=== PATIENT | female | born 1955 | race Caucasian/White ===

== ENCOUNTER → 2017-04-15 | Day surgery (SDC) | payer BC ==
[~2017-04-15] MED LIST: ACETAMINOPHEN 1000 MG/100 ML VIAL IV ONE; BUPIVACAINE/EPINEPHRINE 0.5% PF 10 ML VIAL ONE; HALOPERIDOL LACTATE 5 MG/ML AMP IV ONE; ISOSULFAN BLUE 50 MG/5 ML VIAL SQ ONE; KETOROLAC TROMETHAMINE 30 MG/ML (IVP) VIAL IV PUSH ONE; LACTATED RINGER'S 1000 ML INJ 1,000 ML ONE; LIDOCAINE 1%/EPINEPHrine 1:100,000 SOLN 20 ML VIAL ONE; ONDANSETRON HCL 4 MG/2 ML VIAL IV PUSH ONE; PROPOFOL 200 MG/20 ML AMP IV ONE; ceFAZolin INJ 1,000 MG VIAL ONE
--- NOTE | 2017-04-15 17:13 | RADONCOP ---
OPERATIVE REPORT DATE OF SURGERY: 04/15/2017 REFERRING PHYSICIAN: Sherif Landaverde PREOPERATIVE DIAGNOSIS: C50.412 - Malignant neoplasm of upper-outer quadrant of left female breast, Diagnosed 03/30/2017 (Active) POSTOPERATIVE DIAGNOSIS: C50.412 - Malignant neoplasm of upper-outer quadrant of left female breast, Diagnosed 03/30/2017 (Active) PROCEDURE: Intraoperative Radiation Therapy to the . SURGEON: Sherif Landaverde ANESTHESIA: General ESTIMATED BLOOD LOSS: Minimal see Dr Li's operative note. INDICATIONS: Patient is a 61 year old female presenting with St. 1A left breast cancer.. She has elected to receive targeted intraoperative radiation therapy to the . DESCRIPTION OF PROCEDURE: Patient was taken to the operating room and placed on the table in the supine position. Following induction of general anesthesia, the and arm were prepped and draped sterilely. . The wound was prepared for intraoperative radiation therapy. Based on the diameter of the cavity, a 4.5cm radiation applicator was selected for the delivery of intraoperative radiation therapy. The applicator was then sterilely mounted onto the Intrabeam Stand. Retracting sutures were placed within the skin to be used to retract the skin edges away from the radiation source. The 4.5cm Radiation applicator was then sterilely inserted into the wound. The superficial purse-string suture was tied down. Ultrasound was performed of the breast to document conformity of the surgical margins and the distance from the applicator to the skin surface (1.2cm). The retracting sutures were then secured and a moistened lap pad was placed on the skin surface, followed by an external radiation barrier. Intraoperative radiotherapy was then initiated by the Radiation Oncologist. Total treatment time was 35 minutes. Upon completion of the intraoperative radiotherapy treatment, the radiation applicator, purse-string sutures and retracting sutures were removed from the wound. Dr. Landaverde then completed the surgical procedure. Behzad Dean MD 04/15/2017 5:12:33 PM This report was verified and signed electronically [facility] [address] [place] [address] RADIATION ONCOLOGY OPERATIVE REPORT Date: 04/15/2017 Patient Name: Emmanuelle Velazquez
--- NOTE | 2017-04-15 20:10 | TN ---
cc: KASI DEAN M.D., JOSEPH D. M.D. DATE OF SURGERY 04/15/2017 PREOPERATIVE DIAGNOSIS Left-sided breast cancer at 3 o'clock position. POSTOPERATIVE DIAGNOSIS Left-sided breast cancer at 3 o'clock position. PROCEDURE PERFORMED 1. Injection of Lymphazurin blue dye with sentinel node identification x 4 with lymphatic mapping. 2. Needle-localized excisional quadrantectomy at the 3 o'clock position in the left breast. 3. Application of intraoperative radiation therapy device using a 4.5 cm radiation catheter device. 4. Ultrasound left breast to confirm tissue margins for radiation. ANESTHESIA General SURGEON Dr. Landaverde. RADIATION THERAPIST Dr. Zbigniew Dean. INDICATIONS This is a pleasant lady who was found to have a breast cancer of the left breast at the 3 o'clock position. She is a candidate for a intraoperative radiation therapy. Plans were made for application of the intraoperative radiation therapy device and also sentinel node. PROCEDURE DETAILS The patient prepped and taken to the operating room and placed in supine position. After anesthesia a time-out was done, we inject 6 mL of Lymphazurin blue dye at the needle track chad that is somewhat lateral coursing from posterior to anterior direction and medial to lateral at the 3 o'clock position on the left breast. We injected Lymphazurin blue dye and then we dissect in the axillary region where a hot spot is obtained. We obtained four lymph nodes. The first one being fairly superficial with ex vivo count of 552, it is not blue. A second one with ex vivo count of 1285 and it is not blue. A third one with an ex vivo count of 212 that is not blue and a 4th one with an ex vivo count of 372 that is blue. No other lymphadenopathy is noted and no other hot spots, no other blue nodes. After this was done hemostasis was assured. We then closed the skin with a 4-0 Vicryl. We then direct our attention to the left breast. The guidewire was placed at the 3 o'clock position coursing in the posterior to anterior direction and lateral to medial. We made a horizontal incision approximately 2 cm from the entrance of the guidewire at 3 o'clock position and dissect down through the subcutaneous tissue identifying the guidewire, clipping the guidewire at the skin level, unable to treat it. We go approximately 2 cm above and 2 cm below the guidewire and down almost to the chest wall to completely excise this tumor that is localized. A short stitch placed superiorly and long stitch placed laterally and this is sent down to radiology where the radiologist feel that there are adequate margins with the clip, the mass and the guidewire. Because of the graininess and roughness of the breast tissue at the suture edge, I did take another margin labeled it as superior margin and it is labeled and marked with a short stitch superiorly and long stitch laterally. Then irrigate and hemostasis is assured. This time in the procedure we placed the radiation therapy catheter device. This was done. First we tried the 3.5 and it was too small, we went up to the 4.5 and this fit snugly. I placed a pursestring suture at the superior edge of the breast tissue. I placed the catheter after draping it sterilely and secured into place in a slightly lateral to medial direction into the quadrantectomy site. Dr. Dean and the physicist applied the radiation therapy after I applied the device and radiation therapy last approximately 34 minutes. See the radiation therapy note. It is noted after we did place the device we did an ultrasound to confirm the skin was not too close to the radiation therapy device at all four quadrants and it was greater than a centimeter. Ultrasound to confirm placement of the radiation therapy device with adequate tissue margins. After the radiation was completed the radiation therapy catheter device was removed. deep layer was closed with a 3-0 Vicryl and skin is closed with 4-0 Vicryl. Steri-Strips applied. Sterile bandage applied. Sherif Landaverde MD JSARA/KK /4:48 PM /7:50 PM CHRISTIANO
--- NOTE | 2017-04-16 14:53 | RADONCENDT ---
END OF TREATMENT SUMMARY PRIMARY REFERRING PHYSICIAN: Sherif Landaverde CC: Sherif Landaverde DIAGNOSIS: Primary C50.412 - Malignant neoplasm of upper-outer quadrant of left female breast, Diagnosed 03/30/2017 (Active) Left breast biopsy PRESCRIPTION AND TREATMENT: 2000 cGy to surface of applicator- TREATED PLAN FRACTIONS AND DATES: Course: One fraction delivered on 04/16/2017 TOLERANCE: Patient completed treatment without complications. FOLLOW UP PLAN: Patient to be seen in 2-3 weeks Behzad Dean MD 04/16/2017 2:53:15 PM This report was verified and signed electronically [facility] [address] [place] [address] RADIATION ONCOLOGY END OF TREATMENT SUMMARY Date: 04/15/2017 Patient Name: Emmanuelle Velazquez Date of : 1955 Age: 61 Sex: Female
== END | disposition home or self-care (01) ==
LOC: ESDC 08:09
PROVIDERS: ATTEND Surgery
DX: D05.12 Intraductal carcinoma in situ of left breast (principal)
CPT/HCPCS: 00400; 01610; 19125; 19298; 38525; 38792; 77290; 77300; 77334; 77370; 77424; 88307; J0131; J0690; J1630; J1885; J2405; J3010; J7120; Q9968; 77469

== ENCOUNTER 2017-10-31 01:34 | Emergency (ER) | payer BC ==
[~2017-10-31] VITALS: Ht 162.6 cm; Wt 70.0 kg
[2017-10-31 01:37] VITALS: BP 177/74; PULSE 63; RESP 18; TEMP 97.9; O2SAT 98
[2017-10-31] MEDS ORDERED: SODIUM CHLORIDE 0.9% FLUSH 10 ML FLUSH IV FLUSH PRN (01:45)
--- NOTE | 2017-10-31 01:52 | PD ---
HPI Chief Complaint: Abdominal Pain Time Seen by Provider: 01:49 Travel History International Travel<30 days: No Contact w/Intl Traveler<30days: No Traveled to known affect area: No History of Present Illness HPI 62-year-old female patient presents to the ER today with 2 weeks' history of nausea, diarrhea, and intermittent vomiting, got worse in the last few days and she is now having a lot of lower abdominal discomfort today which she currently rates it a 10 out of 10. She states that she is having vomiting today which she has not had previously. She denies any urinary symptoms or other issues. Modifying Factors: None Associated Signs & Symptoms: Nausea, vomiting, diarrhea, worsening lower abdominal discomfort Risk Factors: None PFSH Social History Tobacco Use: No Allergies-Medications (Allergen,Severity, Reaction): Coded Allergies: iodine (Verified Allergy, Intermediate, VOMITING, 10/31/17) Review of Systems Except as stated in HPI: all other systems reviewed are Neg Physical Exam Narrative GENERAL: Well-developed elderly white female patient currently in moderate distress. Awake and oriented 3. SKIN: Focused skin assessment warm/dry. HEAD: Atraumatic. Normocephalic. EYES: Pupils equal and round. No scleral icterus. No injection or drainage. ENT: No nasal bleeding or discharge. Mucous membranes pink and moist. NECK: Trachea midline. No JVD. Supple. CARDIOVASCULAR: Regular rate and rhythm. No murmur appreciated. RESPIRATORY: No accessory muscle use. Clear to auscultation. Breath sounds equal bilaterally. GASTROINTESTINAL: Abdomen soft, lower abdominal tenderness without guarding or rebound, nondistended. Hepatic and splenic margins not palpable. MUSCULOSKELETAL: No obvious deformities. No clubbing. No cyanosis. No edema. NEUROLOGICAL: Awake and alert. No obvious cranial nerve deficits. Motor grossly within normal limits. Normal speech. PSYCHIATRIC: Appropriate mood and affect; insight and judgment normal. Data Data Last Documented VS Vital Signs Date Time Temp Pulse Resp B/P (MAP) Pulse Ox O2 Delivery O2 Flow Rate FiO2 10/31/17 02:03 98 10/31/17 01:37 97.9 63 18 177/74 (108) Orders Orders Complete Blood Count With Diff (10/31/17 01:45) Comprehensive Metabolic Panel (10/31/17 01:45) Lipase (10/31/17 01:45) Urinalysis - C+S If Indicated (10/31/17 01:45) Iv Access Insert/Monitor (10/31/17 01:45) Ecg Monitoring (10/31/17 01:45) Oximetry (10/31/17 01:45) Sodium Chloride 0.9% Flush (Ns Flush) (10/31/17 01:45) Sodium Chlor 0.9% 1000 Ml Inj (Ns 1000 M (10/31/17 02:00) Morphine Inj (Morphine Inj) (10/31/17 02:00) Ondansetron Inj (Zofran Inj) (10/31/17 02:00) Ct Abd/Pel W/O Iv Contrast (10/31/17 02:33) Labs Laboratory Tests Test 10/31/17 01:59 10/31/17 02:38 White Blood Count 8.1 TH/MM3 Red Blood Count 4.39 MIL/MM3 Hemoglobin 13.5 GM/DL Hematocrit 40.0 % Mean Corpuscular Volume 91.0 FL Mean Corpuscular Hemoglobin 30.6 PG Mean Corpuscular Hemoglobin Concent 33.7 % Red Cell Distribution Width 12.9 % Platelet Count 152 TH/MM3 Mean Platelet Volume 9.2 FL Neutrophils (%) (Auto) 76.1 % Lymphocytes (%) (Auto) 15.4 % Monocytes (%) (Auto) 5.6 % Eosinophils (%) (Auto) 1.5 % Basophils (%) (Auto) 1.4 % Neutrophils # (Auto) 6.1 TH/MM3 Lymphocytes # (Auto) 1.3 TH/MM3 Monocytes # (Auto) 0.5 TH/MM3 Eosinophils # (Auto) 0.1 TH/MM3 Basophils # (Auto) 0.1 TH/MM3 CBC Comment DIFF FINAL Differential Comment Blood Urea Nitrogen 14 MG/DL Creatinine 0.95 MG/DL Random Glucose 160 MG/DL Total Protein 7.1 GM/DL Albumin 3.9 GM/DL Calcium Level 8.8 MG/DL Alkaline Phosphatase 72 U/L Aspartate Amino Transf (AST/SGOT) 19 U/L Alanine Aminotransferase (ALT/SGPT) 28 U/L Total Bilirubin 0.4 MG/DL Sodium Level 142 MEQ/L Potassium Level 3.7 MEQ/L Chloride Level 111 MEQ/L Carbon Dioxide Level 23.2 MEQ/L Anion Gap 8 MEQ/L Estimat Glomerular Filtration Rate 59 ML/MIN Lipase 134 U/L Urine Color YELLOW Urine Turbidity CLEAR Urine pH 5.5 Urine Specific [place] 1.017 Urine Protein NEG mg/dL Urine Glucose (UA) NEG mg/dL Urine Ketones NEG mg/dL Urine Occult Blood TRACE Urine Nitrite NEG Urine Bilirubin NEG Urine Leukocyte Esterase NEG Urine RBC 0-3 /hpf Urine WBC 0-2 /hpf Urine Squamous Epithelial Cells 0-5 /hpf Urine Bacteria NONE /hpf Microscopic Urinalysis Comment CULT NOT INDICATED MDM Medical Decision Making Medical Screen Exam Complete: Yes Emergency Medical Condition: Yes Medical Record Reviewed: Yes Interpretation(s) Laboratory Tests Test 10/31/17 01:59 10/31/17 02:38 Neutrophils (%) (Auto) 76.1 % (16.0-70.0) Random Glucose 160 MG/DL (74-106) Chloride Level 111 MEQ/L (98-107) Estimat Glomerular Filtration Rate 59 ML/MIN (>89) Differential Diagnosis Lower abdominal discomfort, nausea, vomiting, diarrhea: Gastroenteritis versus diverticulitis versus UTI versus other acute intra-abdominal processes versus dehydration versus metabolic issues Narrative Course Lab work shows no significant leukocytosis. Her UA was unremarkable. CAT scan is showing signs of diverticulitis. At this point, my plan would be to treat her for diverticulitis and have her follow-up with primary care physician. Return for any worsening in symptoms as necessary. The plan has been discussed with her and she states understanding. Diagnosis Primary Impression: Abdominal pain Additional Impression: Diverticulitis Med/Other Pt SpecificInfo: Prescription(s) given Scripts Ondansetron Odt (Zofran Odt) 4 Mg Tab 4 MG SL Q6HR Y for Nausea/Vomiting, #7 TAB 0 Refills Prov: Iraj Perez MD 10/31/17 Ciprofloxacin (Cipro) 500 Mg Tab 500 MG PO BID for Infection for 7 Days, #14 TAB 0 Refills Prov: Iraj Perez MD 10/31/17 Metronidazole (Flagyl) 500 Mg Tab 500 MG PO TID for Infection for 7 Days, TAB 0 Refills Prov: Iraj Perez MD 10/31/17 Ibuprofen (Ibuprofen) 600 Mg Tab 600 MG PO Q6H Y for Pain/Inflammation, #20 TAB 0 Refills Prov: Iraj Perez MD 10/31/17 Disposition: 01 DISCHARGE HOME Condition: Stable Rahel Pereze MD Oct 31, 2017 01:52
[2017-10-31] MEDS ORDERED: SODIUM CHLOR 0.9% 1000 ML INJ 1,000 ML IV ONE (02:00)
[2017-10-31] MEDS ORDERED: ONDANSETRON HCL 4 MG/2 ML VIAL IV PUSH ONE (02:00)
[2017-10-31] MEDS ORDERED: MORPHINE SULFATE 2 MG/ML INJ IV PUSH ONE (02:00)
[2017-10-31 02:02] LABS: AUTOMATED NEUTROPHIL # 6.1 TH/MM3 (1.8-7.7); BASOPHIL # 0.1 TH/MM3 (0-0.2); BASOPHIL % 1.4 % (0.0-2.0); EOSINOPHIL # 0.1 TH/MM3 (0-0.4); EOSINOPHIL % 1.5 % (0.0-4.0); HEMOGLOBIN 13.5 GM/DL (11.6-15.3); LYMPH % 15.4 % (9.0-44.0); LYMPHOCYTE # 1.3 TH/MM3 (1.0-4.8); MEAN CORPUSCULAR HEMOGLOBIN 30.6 PG (27.0-34.0); MEAN CORPUSCULAR HGB CONC 33.7 % (32.0-36.0); MEAN PLATELET VOLUME 9.2 FL (7.0-11.0); MONO % 5.6 % (0.0-8.0); MONOCYTE # 0.5 TH/MM3 (0-0.9); NEUT % 76.1 % (16.0-70.0); PLATELET COUNT 152 TH/MM3 (150-450); RED BLOOD COUNT 4.39 MIL/MM3 (4.00-5.30); RED CELL DISTRIBUTION WIDTH 12.9 % (11.6-17.2); WHITE BLOOD COUNT 8.1 TH/MM3 (4.0-11.0)
[2017-10-31 02:03] VITALS: O2SAT 98
[2017-10-31 02:09] LABS: CHLORIDE 111 MEQ/L (98-107); SODIUM (NA) 142 MEQ/L (136-145)
[2017-10-31 02:12] LABS: CALCIUM 8.8 MG/DL (8.5-10.1)
[2017-10-31 02:13] LABS: ALBUMIN 3.9 GM/DL (3.4-5.0); BICARBONATE 23.2 MEQ/L (21.0-32.0); BLOOD UREA NITROGEN 14 MG/DL (7-18); GLUCOSE,RANDOM 160 MG/DL (74-106); LIPASE 134 U/L (73-393)
[2017-10-31 02:16] LABS: ALT (GPT) 28 U/L (10-53); AST (GOT) 19 U/L (15-37); CREATININE 0.95 MG/DL (0.50-1.00); GLOMERULAR FILTRATION RATE 59 ML/MIN (>89)
[2017-10-31 02:17] LABS: TOTAL BILIRUBIN ADULT 0.4 MG/DL (0.2-1.0)
[2017-10-31 02:18] LABS: TOTAL PROTEIN 7.1 GM/DL (6.4-8.2)
[2017-10-31 02:19] LABS: ALKALINE PHOSPHATASE 72 U/L (45-117)
[2017-10-31 02:41] LABS: BILIRUBIN, URINE NEG (NEG); BLOOD, URINE TRACE (NEG); GLUCOSE,URINE NEG (NEG); KETONE, URINE NEG (NEG); NITRITE,URINE NEG (NEG); PH, URINE 5.5 (5.0-8.5); URINE LEUKOCYTE ESTERASE NEG (NEG)
[2017-10-31 02:43] LABS: URINE COLOR YELLOW (YELLW/STRAW)
[2017-10-31 02:47] LABS: RBC, URINE 0-3 /hpf (0-3); SQUAMOUS EPITHELIAL CELL URINE 0-5 /hpf (0-5); WBC, URINE 0-2 /hpf (0-5)
--- NOTE | 2017-10-31 03:09 | RADRPT ---
EXAM DATE/TIME: 10/31/2017 02:48 [facility] COMPARISON: No previous studies available for comparison. INDICATIONS : Nausea, vomiting and diarrhea X 1 day. Lower abdominal pain for 2 weeks ORAL CONTRAST: No oral contrast ingested. RADIATION DOSE: 13.53 CTDIvol (mGy) MEDICAL HISTORY : Carcinoma, breast. SURGICAL HISTORY : lumpectomy ENCOUNTER: Initial ACUITY: 2 weeks PAIN SCALE: 10/10 LOCATION: lower quadrant TECHNIQUE: Volumetric scanning of the abdomen and pelvis was performed. Using automated exposure control and ad justment of the mA and/or kV according to patient size, radiation dose was kept as low as reasonably achievable to obtain optimal diagnostic quality images. DICOM format image data is available electro nically for review and comparison. FINDINGS: LOWER LUNGS: There is minimal atelectasis or consolidation at the right lung base. LIVER: Homogeneous density without lesion. There is no dilation of the biliary tree. No calcified gallston es. SPLEEN: Normal size without lesion. PANCREAS: Within normal limits. KIDNEYS: Normal in size and shape. There is no mass, stone, or hydronephrosis. ADRENAL GLANDS: Within normal limits. VASCULAR: There is no aortic aneurysm. BOWEL/MESENTERY: There are scattered colonic diverticula. There is an area of thickening of the mid sigmoid colon with surrounding inflammatory change likely from diverticulitis. No abscess is seen. The appendix appears normal. ABDOMINAL WALL: Within normal limits. RETROPERITONEUM: There is no lymphadenopathy. BLADDER: No wall thickening or mass. REPRODUCTIVE: Within normal limits. INGUINAL: There is no lymphadenopathy or hernia. MUSCULOSKELETAL: There is degenerative change in the lumbar spine. CONCLUSION: 1. Suspected focal are of diverticulitis in midsigmoid colon in the left lower quadrant. 2. Mild atelectasis or consolidation at the right lung base. Ernie Gamboa MD on October 31, 2017 at 3:05 Board Certified Radiologist. This report was verified electronically.
[2017-10-31] MEDS ORDERED: IBUP-232 PO (03:16)
[2017-10-31] MEDS ORDERED: ZOFR4TAB3 SL (03:16)
[2017-10-31] MEDS ORDERED: CIPR-9 PO (03:16)
[2017-10-31] MEDS ORDERED: METR-1 PO (03:16)
[2017-10-31 03:30] VITALS: BP 144/88; PULSE 75; RESP 18; TEMP 97.2; O2SAT 98
== END 2017-10-31 03:34 | disposition home or self-care (01) ==
LOC: PHED 01:34
DX: K57.32 Diverticulitis of large intestine without perforation or abscess without bleeding (principal); R10.30 Lower abdominal pain, unspecified
CPT/HCPCS: 74176; 80053; 81001; 83690; 85025; 96374; 96375; 99285; J2270; J2405; J7030